=== PATIENT | male | born 1960 | race Caucasian/White ===

== ENCOUNTER → 2020-10-25 | Outpatient (CLI) | payer BC ==
[~2020-10-25] MED LIST: LANS15TA6 PO
== END ==
LOC: LAB 09:05
PROVIDERS: ATTEND Nurse Anesthetist, Certified Registered
DX: Z01.812 Encounter for preprocedural laboratory examination (principal); Z86.010 Personal history of colon polyps; Z20.822 Contact with and (suspected) exposure to COVID-19
CPT/HCPCS: U0003

== ENCOUNTER → 2020-10-29 | Day surgery (SDC) | payer BC ==
[~2020-10-29] MED LIST changes: +IPRATRPIUM/ALBUTEROL 0.5/2.5MG 3 ML NEBU. NEB PRN; +IV RINGERS SOLUTION,LACTATED 1,000 ML IV SCH; +LIDOCAINE 2% PF 5 ML VIAL. ONE; +MIDAZOLAM HCL PF 2 MG/2 ML VIAL. IV ONE; +ONDANSETRON PF 4 MG/2 ML VIAL. IV PRN; +PROPOFOL 10,000 MCG/ML (20ML) VIAL IV ONE
[2020-10-29 08:32] VITALS: BP 125/87
--- NOTE | 2020-11-05 09:08 | PATHOLOGY ---
[facility] Accession Number: [id number] . 01 Material submitted: . PART A: cecum - CECUM POLYP PART B: colon - TRANSVERSE POLYP. Modifiers: transverse PART C: colon - DESCENDING POLYP. Modifiers: descending . 01 Clinical history: . PRE-OPERATIVE HISTORY - HISTORY POLYPS OPERATIVE PROCEDURE - COLONOSCOPY . 02 Diagnosis: A. Colon biopsies, cecum polyp: - Segments of colonic mucosa with hyperplastic mucosal-associated lymphoid tissue. . B. Colon biopsy, transverse colon polyp: - Tubular adenoma. . C. Colon biopsy, descending colon polyp: - Hyperplastic polyp. . (BEN:bethel; 11/04/2020) [facility] 11/05/2020 0827 Local . 02 Comment: There is no high-grade dysplasia or evidence of malignancy. (BEN:bethel; 11/04/2020) . 02 Electronically signed: . Will Harris MD, Pathologist NPI- [id number] . 01 Gross description: . A. The specimen is received in formalin, labeled with the patient's name and "cecum polyp" and consists of multiple fragments of faye tissue measuring 0.7 x 0.5 x 0.2 cm in aggregate which are entirely submitted in A1. . B. The specimen is received in formalin, labeled with the patient's name and "transverse polyp" and consists of a segment of faye tissue measuring 0.6 x 0.3 cm which is entirely submitted in B1. . C. The specimen is received in formalin, labeled with the patient's name and "descending polyp" and consists of 2 fragment faye tissue measuring 0.2 x 0.1 cm and 0.3 x 0.3 cm which are entirely submitted in C1. (MRAYCARMEN; 11/01/2020) SYU/SYU 11/01/2020 1101 Local . 02 Pathologist provided ICD-10: D12.3, K63.5 . 02 CPT . 227841, 714573, [id number] Specimen Comment: A courtesy copy of this report has been sent to [phone] Specimen Comment: Report sent to Performed at: 01 [facility] [address], [place], [place] [id number] MD Jerson Stout MD Phone: [phone] Performed at: 02 [facility] [address] [place] [address], [place] [id number] MD Will Harris MD Phone: [phone]
== END | disposition home or self-care (01) ==
LOC: SURG 06:34
PROVIDERS: ATTEND Emergency Medicine
DX: Z12.11 Encounter for screening for malignant neoplasm of colon (principal); K63.5 Polyp of colon; Z79.899 Other long term (current) drug therapy; Z86.010 Personal history of colon polyps
CPT/HCPCS: 45380; J2001; J2704; J7120

== ENCOUNTER 2021-03-28 14:28 | Emergency (ER) | payer BC ==
[~2021-03-28] VITALS: Ht 172.7 cm; Wt 108.0 kg
[~2021-03-28 14:28] MED LIST changes: -IPRATRPIUM/ALBUTEROL 0.5/2.5MG 3 ML NEBU. NEB PRN; -IV RINGERS SOLUTION,LACTATED 1,000 ML IV SCH; -LIDOCAINE 2% PF 5 ML VIAL. ONE; -MIDAZOLAM HCL PF 2 MG/2 ML VIAL. IV ONE; -ONDANSETRON PF 4 MG/2 ML VIAL. IV PRN; -PROPOFOL 10,000 MCG/ML (20ML) VIAL IV ONE
--- NOTE | 2021-03-28 15:10 | EKG ---
[address] [address] Test Date: 2021-03-28 Test Time: 14:38:13 Pat Name: CARLOS VILCHIS Department: Room: Gender: M [employer] Examiner: AYDIN : 1960 Requested By: CLAYTON BAXTER Order Number: [id number] Reading MD: Measurements Intervals [place] Rate: 106 P: 34 IA: 138 QRS: 57 QRSD: 86 T: -14 QT: 314 QTc: 419 Interpretive Statements SINUS TACHYCARDIA T ABNORMALITY IN INFERIOR LEADS ABNORMAL ECG RI6.02 No previous ECG available for comparison
--- NOTE | 2021-03-28 15:17 | PHYS DOC ---
Past History Past Medical History: High Cholesterol, Hypertension Additional Past Medical Histor: Wheeler's esophagus Past Surgical History: No Surgical History Alcohol Use: None General Adult EDM: Chief Complaint: UPPER EXTREMITY PAIN HPI: HPI: Patient is a 60 year old male with past medical history of HTN, HLD who presents with left arm pain. Pain centers around the bicep. Described as a pressure. Started when he was mowing his lawn. Radiates towards his neck and down towards his hand. Denies chest pain/pressure. Pain is only worsened. He had associated lightheadedness, nausea/vomiting, diaphoresis. He denies any tingling or burning sensations in his arm/hand. No history of similar symptoms. No history of cervical disc disease. No history of heart disease, has not had a stress test or heart catheterization. He does have a remote smoking history. He is unsure of his family history regarding CAD. Review of Systems: Review of Systems: Constitutional: Denies fever or chills. Reports diaphoresis and fatigue. Eyes: Denies change in visual acuity HENT: Denies nasal congestion or sore throat Respiratory: Denies cough or shortness of breath Cardiovascular: + Left arm pressure. Denies chest pain or edema GI: Reports nausea. Denies abdominal pain, vomiting, bloody stools or diarrhea : Denies dysuria Musculoskeletal: + Left arm pressure. Denies back pain or joint pain Integument: Denies rash Neurologic: Denies headache, focal weakness or sensory changes Endocrine: Denies polyuria or polydipsia Lymphatic: Denies swollen glands Psychiatric: Denies depression or anxiety Family History: Family History: Unsure of CAD/KS history for family. Allergies: Allergies: Allergies Coded Allergies Type Severity Reaction Last Updated Verified No Known Drug Allergies 10/25/20 No Physical Exam: PE: Constitutional: Well developed, well nourished, no acute distress, non-toxic appearance. [] HENT: Normocephalic, atraumatic, bilateral external ears normal, oropharynx mois t, no oral exudates, nose normal. [] Eyes: PERRLA, EOMI, conjunctiva normal, no discharge. [] Neck: Normal range of motion, no tenderness, supple, no stridor. [] Cardiovascular:Heart rate regular rhythm, no murmur. Left radial pulse 2+. Cap refill in left hand<2 seconds [] Lungs & Thorax: Bilateral breath sounds clear to auscultation [] Abdomen: Bowel sounds normal, soft, no tenderness, no masses, no pulsatile masses. [] Skin: Warm, dry, no erythema, no rash. [] Back: No tenderness, no CVA tenderness. [] Extremities: No tenderness, no cyanosis, no clubbing, ROM intact, no edema. [] Neurologic: Alert and oriented X 3, normal motor function, normal sensory function, no focal deficits noted. Specifically 5/5 strength in shoulder abduction, elbow flexion/extension, wrist flexion/extension, finger abduction, finger opposition, and thumb extension. [] Psychologic: Affect normal, judgement normal, mood normal. [] Current Patient Data: Vital Signs: Vital Signs Date Time Temp Pulse Resp B/P (MAP) Pulse Ox O2 Delivery O2 Flow Rate FiO2 03/28/21 14:47 99.7 112 18 161/115 97 Room Air EKG: EKG: Sinus rhythm. Normal axis. Inferior T wave inversions and q's diffusely. No previous for comparison. Question NM depression. Radiology/Procedures: Radiology/Procedures: CXR [] Heart Score: C/O Chest Pain: No HEART Score for Chest Pain: HEART Score for Chest Pain Response (Comments) Value History Moderately Suspicious 1 ECG Nonspecific Repolarizatio 1 Age >45 - < 65 1 Risk Factors >3 Risk Factors or Hx CAD 2 Total 5 Risk Factors: Risk Factors: DM, Current or recent (<one month) smoker, HTN, HLP, family history of CAD, obesity. Risk Scores: Score 0 - 3: 2.5% MACE over next 6 weeks - Discharge Home Score 4 - 6: 20.3% MACE over next 6 weeks - Admit for Clinical Observation Score 7 - 10: 72.7% MACE over next 6 weeks - Early Invasive Strategies Course & Med Decision Making: Course & Med Decision Making Pertinent Labs and Imaging studies reviewed. (See chart for details) Patient is 60-year-old male with past medical history of HTN, HLD (not on current treatment) who presents with left arm pressure that started with exertion. Associated with lightheadedness, nausea/vomiting, diaphoresis. Cervical disc disease is certainly a possibility, but he has intact strength. Do not feel that he requires immediate neuroimaging/MRI. His radial pulses 2+, doubt dissection/vascular injury. Given the exertional nature and the description as pressure, I am concerned that this could be an anginal equivalent. His EKG shows Q waves and T wave inversions concerning for ischemia. Single troponin is ordered. If arm pain is taken as an anginal equivalent, his heart score is 5 prior to troponin. Feel that he will require serial troponins and potentially provocative testing if negative. We will plan on admitting for high risk chest pain. Repeat EKG shows more prominent ST/J-point elevations anteriorly V26. Consented Q waves in T wave inversions inferiorly. Aspirin ordered. With the dynamic EKG I discussed with the cardiology [facility] at [facility] who reviewed the EKG and clinical history and request that we start heparin and transfer to [place] for further management. Troponin still pending at this time.\ [id number] Tera Disclaimer: Tera Disclaimer: This electronic medical record was generated, in whole or in part, using a voice recognition dictation system. Departure Departure: Impression: Primary Impression: Left arm pain Additional Impression: ACS (acute coronary syndrome) Disposition: 02 SHORT TERM HOSPITAL Condition: STABLE Referrals: CARLOS SAMANIEGO MD (PCP) CLAYTON BAXTER MD Mar 28, 2021 15:17
--- NOTE | 2021-03-28 15:30 | EKG ---
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
--- NOTE | 2021-03-28 15:31 | RAD ---
XR CHEST 1V 03/28/2021 3:21 PM INDICATION: Left arm pain COMPARISON: 03/28/2021 TECHNIQUE: Portable frontal view of the chest is provided. FINDINGS: The cardiomediastinal silhouette is within normal limits. Lungs are clear. There are no significant pleural effusions. There is no pulmonary vascular congestion. No pneumothora x. No suspicious osseous abnormality. Mild right acromioclavicular osteoarthrosis. IMPRESSION: There is no acute cardiopulmonary process. Electronically signed by: Jessica Rodriguez MD (03/28/2021 3:29 PM) OLIVA
[2021-03-28 15:42] LABS: BASO # 0.1 x10^3/uL (0.0-0.2); BASO % 1 % (0-3); EOS # 0.1 x10^3/uL (0.0-0.7); EOS % 1 % (0-3); HEMATOCRIT 45.6 % (39.0-53.0); HEMOGLOBIN 15.5 g/dL (13.0-17.5); LYMPH # 0.9 x10^3/uL (1.0-4.8); LYMPH % 12 % (24-48); MEAN CORPUSCULAR HEMOGLOBIN 30 pg (25-35); MEAN CORPUSCULAR HGB CONC 34 g/dL (31-37); MEAN CORPUSCULAR VOLUME 87 fL (79-100); MONO # 0.5 x10^3/uL (0.0-1.1); MONO % 6 % (0-9); NEUT % 80 % (31-73); PLATELET COUNT 229 x10^3/uL (140-400); RED BLOOD COUNT 5.24 x10^6/uL (4.30-5.70); RED CELL DISTRIBUTION WIDTH 14.2 % (11.5-14.5); WHITE BLOOD COUNT 7.5 x10^3/uL (4.0-11.0)
[2021-03-28] MEDS ORDERED: ASPIRIN 325 MG TABLET PO ONE (15:45)
[2021-03-28] MEDS ORDERED: HEPARIN for IV BOLUS 10,000 UNIT/10 ML VIAL. IV ONE (15:45)
[2021-03-28 16:02] LABS: CREATININE 1.2 mg/dL (0.7-1.3); GFR 61.3
[2021-03-28 16:08] LABS: ALBUMIN/GLOBULIN RATIO 1.5 (1.0-1.7); TOTAL BILIRUBIN 0.5 mg/dL (0.2-1.0); TOTAL PROTEIN 6.6 g/dL (6.4-8.2)
[2021-03-28 18:13] VITALS: BP 143/95
== END 2021-03-28 19:30 | disposition short-term general hospital (02) ==
LOC: ER 14:28
DX: M79.602 Pain in left arm (principal); I24.9 Acute ischemic heart disease, unspecified; E78.5 Hyperlipidemia, unspecified; I10 Essential (primary) hypertension
CPT/HCPCS: 36415; 71045; 80053; 84484; 85025; 93005; 96374; 99285; J1644